=== PATIENT | female | born 1955 | race Caucasian/White ===

== ENCOUNTER 2018-02-23 07:49 | Day surgery (SDC) | payer BC ==
[2018-02-23] VITALS (8 sets, daily range): BP systolic 104–123; BP diastolic 60–80; PULSE 68–84; RESP 18–20; TEMP 98; O2SAT 96–99
[~2018-02-23] VITALS: Ht 165.1 cm; Wt 95.5 kg
[~2018-02-23 07:49] MED LIST: IRON18TA PO; LORT5TAB PO; NAPR550 PO; PREN0.01 PO
[2018-02-23] MEDS ORDERED: LIDOCAINE 1%/EPINEPHrine 1:100,000 SOLN 50 ML VIAL OTHER ONE (07:50)
[2018-02-23] MEDS ORDERED: SODIUM CHLOR 0.9% 1000 ML IV SCH (09:00)
[2018-02-23] MEDS ORDERED: OMEP20TA93 PO (09:01)
[2018-02-23] MEDS ORDERED: PROC10TA PO (09:01)
[2018-02-23] MEDS ORDERED: MECL-62 PO (09:01)
[2018-02-23] MEDS ORDERED: OXYC-392 PO (09:01)
[2018-02-23] MEDS ORDERED: AMIT75TA2 PO (09:01)
[2018-02-23] MEDS ORDERED: BUSP10TA PO (09:01)
[2018-02-23] MEDS ORDERED: DEXA4TAB PO (09:01)
[2018-02-23] MEDS ORDERED: OXYC1CAP (09:01)
[2018-02-23] MEDS ORDERED: MIDAZOLAM HCL 2 MG/2 ML VIAL ONE (10:16)
--- NOTE | 2018-02-23 11:52 | PD.RAD ---
Post CT Procedure Prog Note Pre Procedure Diagnosis: (1) Lung mass Post Procedure Diagnosis: (1) Lung mass Procedure Date: Feb 23, 2018 Supervising Radiologist: Angelito Hernandez Proceduralist/Assist: johanny goncalves Estimated blood loss: none Anesthesia: Conscious Sedation Plan of Activity Patient to Unit: [facility] Patient Condition: Good See PACS Report for procedural detail/treatment Angelito Hernandez MD Feb 23, 2018 11:52
--- NOTE | 2018-02-23 12:27 | RADRPT ---
EXAM DATE/TIME: 02/23/2018 12:06 [facility] COMPARISON: CT NEEDLE BIOPSY LUNG, RIGHT, February 23, 2018, 10:21. INDICATIONS : Post needle biopsy of left lung MEDICAL HISTORY : None. SURGICAL HISTORY : None. ENCOUNTER: Subsequent ACUITY: 1 day PAIN SCORE: 0/10 LOCATION: Left chest FINDINGS: Portable upright expiratory view of the chest following recent right lung nodule biopsy demonstrates no pneumothorax. The nodule in the right mid to lower lung zone is identified. CONCLUSION: No pneumothorax is identified following right lung nodule biopsy. Heriberto Chase MD on February 23, 2018 at 12:25 Board Certified Radiologist. This report was verified electronically.
--- NOTE | 2018-02-24 07:47 | RADRPT ---
EXAM DATE/TIME: 02/23/2018 10:21 [facility] COMPARISON: CHEST EXPIRATION ONLY, February 23, 2018, 12:06. INDICATIONS : Right lung mass. SEDATION TIME: 30 minutes BIOPSY SITE: Right Lung MEDICATION(S): 1.) 3 mg midazolam (Versed) IV 2.) 150 mcg fentanyl (Sublimaze) IV DEVICE(S): 1.) 19 gauge Coaxial 2.) 20 gauge Temno core biopsy needle 3.) 20 gauge Temno Core biopsy needle MEDICAL HISTORY : Peritoneal carcinoma SURGICAL HISTORY : Cholecystectomy Appendectomy. Hysterectomy. ENCOUNTER: Initial ACUITY: 1 day PAIN SCORE: 0/10 LOCATION: Right Lung A total of two core specimen(s) were obtained and sent to the laboratory for pathologic evaluation. PROCEDURE: 1. CT guided lung biopsy. 2. Conscious sedation with continuous EKG and oximetry monitoring. Prior to the procedure informed consent was obtained. Any appropriate prior imaging studies were rev iewed. Using automated exposure control and adjustment of the mA and/or kV according to patient size, radiation dose was kept as low as reasonably achievable to obtain optimal diagnostic quality images. DICOM format image data is available electronically for review and comparison. The site was prepped in a sterile fashion. Full sterile technique was used, including cap, mask, ewelina rile gloves and gown and a large sterile sheet. Hand hygiene and 2% chlorhexidine and/or betadine/al cohol prep was utilized per protocol for cutaneous antisepsis. The skin and subcutaneous tissues wer e infiltrated with local anesthetic solution. With CT guidance the previously identified target was localized. Biopsy was performed using the presc ribed needle as above. Adequate hemostasis was obtained with compression at the puncture site. Follow-up CT scan reveals no pneumothorax. Minimal subcutaneous emphysema. Conscious sedation was performed with the prescribed dosages and duration as above in the presence of an independent trained radiology nurse to assist in the monitoring of the patient. EKG and oximetry remained stable throughout the procedure. The patient tolerated the procedure well and there were no complications. The patient was sent to Radiology Outpatient Unit in stable condition. CONCLUSION: Uncomplicated CT guided biopsy of right infrahilar mass from anterior approach. Angelito Hernandez MD on February 24, 2018 at 7:44 Board Certified Radiologist. This report was verified electronically.
== END 2018-02-23 15:00 | disposition home or self-care (01) ==
LOC: HRAD 07:49 → HRIP 07:58 → HRAD 15:00
PROVIDERS: ATTEND Internal Medicine Hematology & Oncology
DX: R91.8 Other nonspecific abnormal finding of lung field (principal)
CPT/HCPCS: 32405; 71045; 77012; 88305; 88341; 88342; J2250; J3010; J7030

== ENCOUNTER 2018-03-10 06:51 | Day surgery (SDC) | payer BC ==
[~2018-03-10] VITALS: Ht 167.6 cm; Wt 93.2 kg
[~2018-03-10 06:51] MED LIST changes: +AMIT75TA2 PO; +BUSP10TA PO; +DEXA4TAB PO; -IRON18TA PO; -LORT5TAB PO; +MECL-62 PO; -NAPR550 PO; +OMEP20TA93 PO; +OXYC-392 PO; +OXYC1CAP; -PREN0.01 PO; +PROC10TA PO
[2018-03-10 07:28] VITALS: BP 137/86; PULSE 79; RESP 20; TEMP 97.7; O2SAT 95
[2018-03-10 08:06] LABS: AUTOMATED NEUTROPHIL # 6.6 TH/MM3 (1.8-7.7); BASOPHIL % 0.4 % (0.0-2.0); EOSINOPHIL # 0.2 TH/MM3 (0-0.4); EOSINOPHIL % 2.7 % (0.0-4.0); HEMATOCRIT 40.1 % (35.0-46.0); HEMOGLOBIN 13.6 GM/DL (11.6-15.3); LYMPHOCYTE # 1.1 TH/MM3 (1.0-4.8); MEAN CELL VOLUME 85.4 FL (80.0-100.0); MEAN CORPUSCULAR HEMOGLOBIN 28.9 PG (27.0-34.0); MEAN CORPUSCULAR HGB CONC 33.8 % (32.0-36.0); MEAN PLATELET VOLUME 7.1 FL (7.0-11.0); MONO % 8.1 % (0.0-8.0); MONOCYTE # 0.7 TH/MM3 (0-0.9); NEUT % 75.8 % (16.0-70.0); PLATELET COUNT 245 TH/MM3 (150-450); RED BLOOD COUNT 4.69 MIL/MM3 (4.00-5.30); WHITE BLOOD COUNT 8.8 TH/MM3 (4.0-11.0)
[2018-03-10 08:16] LABS: PROTHROMBIN TIME - PATIENT 10.4 SEC (9.8-11.6)
[2018-03-10] MEDS ORDERED: ceFAZolin 2 GM PREMIX 50 ML - implanted port/tunneled catheter insertion IV SCH (08:45)
[2018-03-10] MEDS ORDERED: VANCOMYCIN 1000 MG/NS 250 ML - implanted port/tunneled catheter IV SCH ×2 (08:45)
[2018-03-10] MEDS ORDERED: fentaNYL CITRATE 250 MCG/5 ML AMP ONE (09:16)
[2018-03-10] MEDS ORDERED: MIDAZOLAM HCL 5 MG/5 ML VIAL ONE (09:16)
[2018-03-10] MEDS ORDERED: LIDOCAINE 1%/EPINEPHrine 1:100,000 SOLN 30 ML VIAL ONE (09:55)
[2018-03-10 10:25] VITALS: BP 134/66; PULSE 92; RESP 18; TEMP 97.5; O2SAT 94
--- NOTE | 2018-03-10 10:34 | PD.RAD ---
Post Procedure Progress Note Pre Procedure Diagnosis: (1) Lung mass Post Procedure Diagnosis: (1) Lung mass Procedure Date: March 10, 2018 Supervising Radiologist: Sylvester Barboza Proceduralist/Assist: Mali Mandujano, RT(R), Sanjana Vences RT(R) Anesthesia: Conscious Sedation Plan of Activity Patient to Unit: [facility] Patient Condition: Good See PACS Report for procedural detail/treatment Sylvester Barboza MD March 10, 2018 10:34
--- NOTE | 2018-03-10 10:37 | RADRPT ---
EXAM DATE/TIME: 03/10/2018 10:09 [facility] COMPARISON: No previous studies available for comparison. INDICATIONS : Patient with history of lung cancer in need of Bhiji-b-Dfzz placement. MEDICAL HISTORY : Lung mass, GERD, Gastric cancer, Diverticulosis, Bone cancer SURGICAL HISTORY : Colon resection, Cholecystectomy, Tongue tumor removed, Saliva glands removed, Lung biopsy ENCOUNTER: Initial ACUITY: 1 month PAIN SCORE: 0/10 FLUORO TIME: 0.16 minutes IMAGE SERIES: 1 SEDATION TIME: 30 minutes ACCESS: Right internal jugular vein SEDATION: 1.) 2 mg midazolam (Versed) IV 2.) 100 mcg fentanyl (Sublimaze) IV Prophylactic antibiotics were administered with appropriate pre-procedure timing. Vancomycin within 2 hours of procedure, Ancef (or alternative) within 1 hour of procedure. DEVICE: 1. 8 Vietnamese single lumen BioFlo Port PROCEDURE : 1. Continuous pulse oximetry and EKG monitoring. 2. Intravenous conscious sedation. 3. Ultrasound guidance for venous access. 4. Fluoroscopic guided implantable central venous port placement. The patient was placed supine. The neck was prepped in sterile fashion. Full sterile technique was u sed, including cap, mask, sterile gloves and gown, and a large sterile sheet. Hand hygiene and 2% ch lorhexidine Betadine was utilized per protocol for cutaneous antisepsis with appropriate dry time for site. Sterile gel and sterile probe cover were utilized for ultrasound guidance. The skin and sub cutaneous tissues were infiltrated with local anesthetic solution. Under direct ultrasound guidance, central venous access was accomplished in the targeted vessel. The ultrasound images depicting access guidance were stored and saved to PACS for permanent record. A s ubcutaneous pocket was created using blunt dissection. The port was introduced to the pocket. The c atheter tubing was fed through a subcutaneous tunnel to the venotomy site. The catheter tubing was c ut to a suitable length and then was introduced through a valved Peel-Away sheath and positioned with catheter tubing tip at the cavo-atrial junction level. The pocket incision was closed with subcutic ular Vicryl suture. Steri-Strips were applied. The port was flushed and locked with heparin solutio n per protocol. Sterile dressing was applied to the site. The patient tolerated the procedure well. Conscious sedation was performed with the prescribed dosages and duration as above in the presence of an independent trained radiology nurse to assist in the monitoring of the patient. EKG and oximetry remained stable throughout the procedure. The patient tolerated the procedure well and there were no complications. The patient was sent to post anesthesia recovery in stable condition. CONCLUSION: Uncomplicated ultrasound and fluoroscopic guided implanted central venous port catheter placement as described in detail above. An 8 Vietnamese Power port was placed. Sylvester Barboza MD on March 10, 2018 at 10:35 Board Certified Radiologist. This report was verified electronically.
[2018-03-10 10:45] VITALS: BP 129/76; PULSE 93; RESP 18; O2SAT 94
[2018-03-10 11:15] VITALS: BP 128/62; PULSE 93; RESP 18; O2SAT 97
== END 2018-03-10 12:15 | disposition home or self-care (01) ==
LOC: HROP 06:51 → HRIP 06:52 → HROP 12:15
PROVIDERS: ATTEND Internal Medicine Hematology & Oncology
DX: C34.90 Malignant neoplasm of unspecified part of unspecified bronchus or lung (principal); C79.51 Secondary malignant neoplasm of bone; Z85.028 Personal history of other malignant neoplasm of stomach; K21.9 Gastro-esophageal reflux disease without esophagitis; K57.90 Diverticulosis of intestine, part unspecified, without perforation or abscess without bleeding; F41.9 Anxiety disorder, unspecified; Z01.818 Encounter for other preprocedural examination
CPT/HCPCS: 36561; 76937; 77001; 85025; 85610; 85730; 99152; 99153; C1788; J1642; J2250; J3010; J3370; J7050

== ENCOUNTER 2018-05-03 00:03 | Inpatient (IN) | END 2018-05-06 13:36 | disposition hospice, inpatient (51) | LOC: HCIN 03:04 | PROVIDERS: ADMIT Internal Medicine; ATTEND Internal Medicine ==